=== PATIENT | male | born 1955 | race Two or more races ===

== ENCOUNTER 2025-09-15 09:50 | Day surgery (SDC) | payer OTHER, MEDICAID ==
[2025-09-15] VITALS (7 sets, daily range): BP systolic 111–157; BP diastolic 56–85; PULSE 74–88; RESP 13–27; O2SAT 95
[~2025-09-15 09:50] MED LIST: AMLO1TAB22 PO; CLOP75TA70 PO; METO25TA5 PO
[2025-09-15] MEDS ORDERED: VERAPAMIL 2.5MG/ML INJ 2ML VIAL IV ONE (13:42)
[2025-09-15] MEDS ORDERED: HEPARIN SODIUM (PORCINE) 5000 UNITS/ML 1ML VIAL ONE (13:42)
[2025-09-15] MEDS ORDERED: LIDOCAINE 2%HCL (LOCAL ANESTH.) INJ 20ML MDV ONE (13:43)
[2025-09-15] MEDS ORDERED: fentaNYL CITRATE 100 MCG/2 ML VL ONE (13:43)
[2025-09-15] MEDS ORDERED: MIDAZOLAM HCL 2MG/2ML 2ml VIAL (1mg/ml) ONE (13:43)
[2025-09-15] MEDS ORDERED: ANGIOMAX 250 MG VIAL IV ONE (13:44)
[2025-09-15] MEDS ORDERED: IODIXANOL 320MG/ML 100ML BTL IV ONE (13:44)
[2025-09-15] MEDS ORDERED: SODIUM CHL 0.9% 0 ML ONE (13:45)
[2025-09-15] MEDS ORDERED: FUROSEMIDE 20 MG/2 ML VIAL ONE (14:39)
--- NOTE | 2025-09-15 15:01 | DVHOP2 ---
Operative Report - 2 Report Details Date: 09/15/25 Preop Diagnosis: CAD Postop Diagnosis: Mild CAD Surgeon: Justin Briones MD Anesthesiologist: Conscious sedation Anesthesia: Mac, Local Consent: The patient was informed of the risks and benefits of the procedure. These include but are not limited to complications of anesthesia, postoperative infection, incomplete relief of symptoms, recurrence of symptoms, damage to blood vessels, nerves and tendons, deep venous thrombosis, pulmonary embolism and possible need for repeat surgery in the future. Complications: No complications Findings: Mild CAD Indications for Surgery: Chest pain Name of Procedure Performed Bilateral cine coronary angiography left ventriculography, left heart catheterization. Fractional flow reserve evaluation of RCA. Procedure Details Procedure Details: Prior local anesthesia with 2% lidocaine to the right wrist and full informed consent obtained the patient was prepped and draped in usual fashion followed by placement of a [employer] catheter into the radial artery to perform ventriculography and a 3.5 EBU guide was then used to cannulate the RCA and left main given tortuosity and calcification of the aorta. Hemodynamics: Aortic blood pressure was 130/70. End-diastolic pressure was 22. No gradient across the aortic valve on pullback. Coronary anatomy: The RCA is a large vessel it is normal in its proximal mid section. The distal RCA prior to the origin of the posterolateral branches has what appears to be a 60-70% stenosis angiographically. Posterolateral branches are normal. Fractional flow reserve evaluation reveals this to be 0.9 consistent with noncritical disease The left main is large and normal. Left anterior descending is large with two diagonals free of significant disease. Circumflex is large with two marginals free of significant disease. Ventriculography in the BALLARD projection shows a enlarged left ventricle. It is significantly hypokinetic. EF is a proximally 25% with severe global hypokinesis. Impression: Elevated left ventricular end-diastolic pressure at rest with decreased left ventricular ejection fraction. Mild CAD with noncritical disease of the RCA Recommendations: Medical therapy is warranted continue risk factor modification afterload reduction. Condition Good Disposition Home Date of Service: Sep 15, 2025 Billing Provider: JUSTIN BRIONES Sr., MD Cardiology Common Codes: 68794-DUGEYZR INP/OBS CARE (High) Cardiology Procedure Codes: 47067-[facility]PD HEART CATH W/INTRA INJ JUSTIN BRIONES Sr., MD Sep 15, 2025 15:01
== END 2025-09-15 16:59 | disposition home or self-care (01) ==
LOC: CATH 09:50
PROVIDERS: ATTEND Internal Medicine
DX: I11.0 Hypertensive heart disease with heart failure (principal); I50.22 Chronic systolic (congestive) heart failure; I25.10 Atherosclerotic heart disease of native coronary artery without angina pectoris; K21.9 Gastro-esophageal reflux disease without esophagitis; I25.2 Old myocardial infarction; G47.33 Obstructive sleep apnea (adult) (pediatric); I25.5 Ischemic cardiomyopathy; E11.9 Type 2 diabetes mellitus without complications; E78.5 Hyperlipidemia, unspecified; Z87.891 Personal history of nicotine dependence; Z98.62 Peripheral vascular angioplasty status; Z79.01 Long term (current) use of anticoagulants; Z90.49 Acquired absence of other specified parts of digestive tract; Z98.890 Other specified postprocedural states; Z79.82 Long term (current) use of aspirin
CPT/HCPCS: 0523T; 93458; C1769; C1887; C1894; J1644; J1938; J2250; J3010; J7030; Q9967; 99152